=== PATIENT | female | born 1975 | race Caucasian/White ===

== ENCOUNTER → 2017-04-19 | Outpatient (CLI) | payer BC ==
--- NOTE | 2017-04-19 16:50 | US ---
EXAM DESCRIPTION: Pelvis Transvaginal CLINICAL HISTORY: EXCESSIVE AND FREQUENT MENSTRUATION WITH REGULAR CYCLE COMPARISON: None available. TECHNIQUE: Transvaginal pelvic US was performed. FINDINGS: Uterus: The uterus is anteverted and measures 7 cm in length. There is a 1.7 cm subserosal fibroid arising from the posterior uterine wall. There is a second 1.8 cm intramural fibroid anteriorly. There are several small cysts near the uterine cervix which likely represent nabothian cysts measuring up to 4 mm diameter. No endometrial thickening. Cervix: Several small nabothian cysts as detailed above. A few punctate hyperechoic nonshadowing structures in the uterine cervix may represent atypical calcification. Right Ovary/Right Adnexa: 2.0 x 0.9 x 1.8 cm and otherwise unremarkable.. Left Ovary/Left Adnexa: 3.0 x 2.1 x 1.6 cm and otherwise unremarkable.. Free Fluid: No pathologic free fluid. IMPRESSION: Uterine fibroids, but no endometrial thickening or other abnormality to explain patient's symptoms. Electronically signed by: Valerio Mcgee MD 04/19/2017 4:48 PM CDT Workstation: [id number]
== END | disposition home or self-care (01) ==
LOC: US 11:03
PROVIDERS: ATTEND Nurse Practitioner Family
DX: N92.0 Excessive and frequent menstruation with regular cycle (principal)

== ENCOUNTER → 2018-03-14 | Outpatient (CLI) | payer BC ==
--- NOTE | 2018-03-14 13:34 | CT ---
EXAM DESCRIPTION: Abdomen/Pelvis w/Contrast CLINICAL HISTORY: 42 years Female, pain . COMPARISON:Radiographs of the abdomen dated 03/07/2018. TECHNIQUE: Contiguous 3 mm axial images were obtained from the lung bases to the level of the proximal femora after the administration of intravenous and oral contrast. Sagittal and coronal reconstructions were reviewed. FINDINGS: THORAX: The imaged lower thorax demonstrates no gross abnormality. LIVER: 1.8 cm hypodense lesion is identified in hepatic segment 2. This is nonspecific in etiology. Remainder of the liver appears normal. GALLBLADDER: Mildly distended with no gross abnormality. PANCREAS: Appears normal with no cystic or solid lesions. SPLEEN: Normal ADRENAL GLANDS: Normal with no nodules or masses. KIDNEYS: Both kidneys enhance symmetrically with no hydronephrosis or nephrolithiasis or perinephric fluid collections. No focal masses are identified. The visualized ureters appear grossly unremarkable. STOMACH: The stomach is well-distended with no gross abnormality. SMALL BOWEL: The small bowel loops demonstrate variable degrees of distention with no abnormal dilatation or other signs to suggest bowel obstruction. LARGE BOWEL: The colon is adequately distended with no gross abnormality. No evidence of free intraperitoneal air or fluid. RETROPERITONEUM: The abdominal aorta is nonaneurysmal with no significant atherosclerosis. The inferior vena cava is normal in size and caliber. No abnormally enlarged retroperitoneal lymph nodes are identified. URINARY BLADDER:The urinary bladder is well-distended with no gross abnormality. The uterus is enlarged and heterogenous with multiple hypodense masses most likely representing fibroids. Bilateral ovaries appear normal. ADDITIONAL FINDINGS: None. BONES: Mild degenerative changes are identified in the visualized bones.No evidence of osteophytic or osteoblastic lesions. IMPRESSION: k 1. No acute intra-abdominal or intrapelvic process. 2. 1.8 cm indeterminate hypodense lesion is noted in hepatic segment 2. 3. Enlarged and heterogenous uterus with multiple hypodense masses most likely representing fibroids. This exam was performed according to our departmental dose-optimization program, which includes automated exposure control, adjustment of the mA and/or kV according to patient size and/or use of iterative reconstruction technique. Electronically signed by: Kenia Huffman MD 03/14/2018 1:33 PM CDT
== END ==
LOC: CT 10:01
PROVIDERS: ATTEND Nurse Practitioner Family
DX: K59.00 Constipation, unspecified (principal); N85.2 Hypertrophy of uterus; K76.9 Liver disease, unspecified